=== PATIENT | male | born 1980 ===

== ENCOUNTER 2022-06-16 19:05 | Emergency (ER) | payer SELFPAY ==
[2022-06-16] MEDS ORDERED: Morphine 4 MG/ML VIAL ONE (19:28)
[2022-06-16] MEDS ORDERED: Ketorolac Tromethamine 30 MG/ML VIAL ONE (19:28)
[2022-06-16] MEDS ORDERED: Cyclobenzaprine 10 MG TAB ONE (20:56)
[2022-06-16] MEDS ORDERED: Dexamethasone 10 MG/ML VIAL ONE (20:56)
== END 2022-06-16 21:15 ==
LOC: ERS 19:05
DX: S39.012A Strain of muscle, fascia and tendon of lower back, initial encounter (principal); E78.00 Pure hypercholesterolemia, unspecified; Y93.B3 Activity, free weights
CPT/HCPCS: 72100; 96372; J1100; J1885; J2270